=== PATIENT | female | born 1980 | race Caucasian/White ===

== ENCOUNTER 2019-01-03 15:32 | Emergency (ER) | payer OTHER ==
[2019-01-03] MEDS ORDERED: XYLOCAINE 1% HCL 20 ML MDV ONE (15:51)
[2019-01-03 15:59] VITALS: BP 130/86; PULSE 87; O2SAT 99
--- NOTE | 2019-01-03 16:14 | ERPHSYRPT ---
- History of Present Illness Source: patient Exam Limitations: no limitations Patient Subjective Stated Complaint: Cut right thumb at the base by hitting it on an electrical socket face plate that had a sharp edge, 1 cm long Triage Nursing Assessment: denies pain, unknown last tetanus, vitals wnl, no other issues at this time Physician History: Pt is a 38 y/o female that presented to the ED with a laceration at the base on the R thumb. Pt was at work and was cleaning. She cut her thumb on a metal piece that was ssticking out of the socket. Pt denies F/C/S. No SOB or cough. No SOB or dizziness. Pt's tetanus, is not up to date. Timing/Duration: today Quality: painful Severity: mild Location: hands (R thumb) Associated Symptoms: denies symptoms Allergies/Adverse Reactions: No Known Drug Allergies Allergy (Verified 01/03/19 15:49) Hx Tetanus, Diphtheria Vaccination/Date Given: No - Review of Systems Constitutional: No Fever, No Chills Eyes: No Symptoms Ears, Nose, & Throat: No Symptoms Respiratory: No Cough, No Dyspnea Cardiac: No Chest Pain, No Edema, No Syncope Abdominal/Gastrointestinal: No Abdominal Pain, No Nausea, No Vomiting, No Diarrhea Musculoskeletal: No Back Pain, No Neck Pain Skin: Other (skin laceration at base of the R thumb) - Past Medical History Pertinent Past Medical History: No - Past Surgical History Past Surgical History: Yes Female Surgical History: Tubal Ligation - Social History Smoking Status: Current some day smoker How long have you smoked: 20 years Exposure to second hand smoke: Yes Drug Use: none Patient Lives Alone: No - Female History Hx Now: No - Nursing Vital Signs Nursing Vital Signs: Initial Vital Signs Temperature 97.7 F 01/03/19 15:41 Pulse Rate 87 01/03/19 15:41 Blood Pressure 130/86 01/03/19 15:41 O2 Sat by Pulse Oximetry 99 01/03/19 15:41 Pain Scale Pain Intensity 0 - Physical Exam General Appearance: no apparent distress, alert Eye Exam: PERRL/EOMI, eyes nml inspection Ears, Nose, Throat Exam: normal ENT inspection, pharynx normal, moist mucous membranes Extremity Exam: normal inspection, normal range of motion Skin Exam: laceration (1.5cm laceration at base of the R thumb) SpO2: 99 Procedures - Laceration/Wound Repair Right Dorsal Finger Wound Location: Right, hand (R base of thumb) Wound's Depth, Shape: superficial Wound Explored: contaminated Irrigated: Yes Hibiclens Prep: Yes Anesthesia: 1% Lidocaine Volume Anesthetic (ccs): 3 Wound Debrided: minimal Wound Repaired With: sutures Suture Size/Type: 3-0 Number of Sutures: 2 Sterile Dressing Applied?: Yes Splint Applied?: No Sling Applied?: No - Course Nursing assessment & vital signs reviewed: Yes Ordered Tests: Medication Summary Discontinued Medications Generic Name Dose Route Start Last Admin Trade Name Ike PRN Reason Stop Dose Admin Lidocaine HCl Confirm 01/03/19 15:51 Xylocaine 1% Hcl 20 Ml Mdv Administered 01/03/19 15:52 Dose 1 ml .ROUTE .ID8-Mobile ONE - Progress Progress: improved Progress Note: 01/03/19 16:16 Pt presented with laceration. The area was cleaned with Hibiclens. 3-0 Ethilon was used and 2 stitches were placed. Pt tolerated procedure well. She did get tetanus vaccine, and the owund was cleaned, ABX oint placed, and dressed. Pt will have Keflex RC to be taken for 7 days. Pt should f/u with her PCP in 7-10 days to remove the stitches. Will see patient in: office Counseled pt/family regarding: need for follow-up - Departure Departure Disposition: Home Clinical Impression: Thumb laceration Condition: Stable Critical Care Time: No Instructions: Laceration Repair With Stitches (DC) Additional Instructions: F/U with PCP in 7-10 days to remove stitches. Keep the wound clean and dry. Finish ABX as ordered. Prescriptions: Cephalexin Mh 500 mg [Keflex 500 mg] 500 mg PO Q8H 7 Days #21 capsule
[2019-01-03] MEDS ORDERED: Adacel Vial IM ONE (16:21)
== END 2019-01-03 16:27 | disposition home or self-care (01) ==
LOC: ED 15:32
DX: S61.011A Laceration without foreign body of right thumb without damage to nail, initial encounter (principal); W22.8XXA Striking against or struck by other objects, initial encounter; Y93.89 Activity, other specified; Y92.9 Unspecified place or not applicable
CPT/HCPCS: 12001; 90471; 90715; 96372; 99283